=== PATIENT | female | born 1945 | race Caucasian/White ===

== ENCOUNTER 2019-12-22 10:45 | Inpatient (IN) | payer OTHER ==
[~2019-12-22] VITALS: Ht 157.5 cm; Wt 68.9 kg
[~2019-12-22 10:45] MED LIST: NORPTMEDS CO
[2019-12-22 11:35] LABS: Basophils # (auto) 0.1 10 ^3/uL (0-0.2); Basophils % (auto) 0.7 % (0.0-2.0); Eosinophils # (auto) 0.1 10 ^3/uL (0-0.8); Eosinophils % (auto) 0.3 % (0.0-7.0); Hematocrit 34.5 % (36.0-46.0); Hemoglobin 11.5 g/dL (12.2-16.2); Lymphocytes # (auto) 1.7 10 ^3/uL (0.4-5.4); Lymphocytes % (auto) 10.5 % (10.0-50.0); Mean Corpuscular Hemoglobin 30.3 pg (28.0-32.0); Mean Corpuscular Hgb Conc. 33.2 g/dL (32.0-36.0); Mean Corpuscular Volume 91.3 fL (80.0-100.0); Monocytes # (auto) 2.1 10 ^3/uL (0-1.3); Monocytes % (auto) 13.3 % (0.0-12.0); Neutrophils % (auto) 75.2 % (37.0-80.0); Platelet Count (auto) 318 10^3/uL (140-450); Red Blood Cells 3.78 10^6/uL (4.0-5.20)
[2019-12-22 11:49] LABS: Albumin 3.1 g/dL (3.4-5.0); Calcium 8.6 mg/dL (8.5-10.1); Potassium 3.9 mmol/L (3.5-5.1)
[2019-12-22 11:53] LABS: BUN/Creatinine Ratio 18.5; Total Protein 7.3 g/dL (6.4-8.2)
[2019-12-22] MEDS ORDERED: ONDANSETRON HCL 4 MG/2 ML VIAL IV ONE (13:15)
[2019-12-22] MEDS ORDERED: ENOXAPARIN SOD 80 MG/0.8ML SYRINGE SC ONE (13:15)
[2019-12-22] MEDS ORDERED: MORPHINE SULFATE 4 MG/ML SYR/VIAL IV ONE (13:15)
[2019-12-22] MEDS ORDERED: CLINDAMYCIN 600MG IV 50 ML IV ONE (13:45)
[2019-12-22] MEDS ORDERED: cefTRIAXone 1GM/50ML D5W 50 ML IV ONE (13:45)
[2019-12-22] MEDS ORDERED: HYDROcodone-ACET 10/325MG TAB PO ONE (15:15)
[2019-12-22] MEDS ORDERED: HYDROcodone-ACET 10/325MG TAB ONE (15:17)
[2019-12-22 16:04] LABS: INR 1.04 (0.9-1.15); Partial Thromboplastin Time 31.7 sec (23.0-31.2)
[2019-12-22] MEDS ORDERED: ACETAMINOPHEN 325 MG TAB PO PRN (16:30)
[2019-12-22] MEDS ORDERED: MORPHINE SULF INJ 2 MG/ML SYRINGE 1ML IV PRN (16:30)
[2019-12-22] MEDS ORDERED: NITROGLYCERIN 0.4 MG SL TAB SL PRN (16:30)
[2019-12-22] MEDS: SODIUM CHLORIDE 0.9% 1,000 ML IV SCH (16:31)
[2019-12-22] MEDS ORDERED: ETOD200C27 PO (18:54)
[2019-12-22] MEDS ORDERED: ATEN-60 PO (18:54)
--- NOTE | 2019-12-22 20:46 | NUR ---
Tele Admit from ER Patient arrived on unit via stretcher. Tele box #55 SR in the 60s. Patient exhibited no s/s of distress or pain. Respirations are even and unlabored. Ice packs given for leg. Patient oriented to unit, room, and call light. Safety measures maintained by keeping the bed locked in lowest position, 2 side rails up, personal items and call light within reach. POC discussed with patient. Patient verbalized understanding. Will continue to monitor.
[2019-12-22 22:00] VITALS: BP 110/61
[2019-12-22] MEDS: ENOXAPARIN SOD 80 MG/0.8ML SYRINGE SC SCH (22:21)
[2019-12-23 00:26] VITALS: BP 110/61
[2019-12-23] MEDS: SODIUM CHLORIDE 0.9% 1,000 ML IV SCH ×2 (03:47→09:30)
[2019-12-23 05:00] VITALS: BP 119/57
[2019-12-23] MEDS: HYDROcodone-ACET 5/325MG TAB PO PRN ×2 (05:30→12:06)
[2019-12-23 06:00] LABS: Basophils # (auto) 0 10 ^3/uL (0-0.2); Basophils % (auto) 0.3 % (0.0-2.0); Eosinophils # (auto) 0.2 10 ^3/uL (0-0.8); Eosinophils % (auto) 1.9 % (0.0-7.0); Hematocrit 30.5 % (36.0-46.0); Hemoglobin 10.3 g/dL (12.2-16.2); Lymphocytes % (auto) 18.2 % (10.0-50.0); Mean Corpuscular Hgb Conc. 33.8 g/dL (32.0-36.0); Mean Corpuscular Volume 91.6 fL (80.0-100.0); Monocytes # (auto) 1.9 10 ^3/uL (0-1.3); Monocytes % (auto) 17.2 % (0.0-12.0); Neutrophils # (auto) 6.8 10 ^3/uL (1.6-8.6); Neutrophils % (auto) 62.4 % (37.0-80.0); Platelet Count (auto) 282 10^3/uL (140-450); Red Blood Cells 3.34 10^6/uL (4.0-5.20); Red Cell Distribution Width 12.7 % (11.8-14.3); White Blood Cell 10.9 10^3/uL (4.4-10.8)
[2019-12-23 06:20] LABS: Calcium 8.1 mg/dL (8.5-10.1); Potassium 4.1 mmol/L (3.5-5.1)
[2019-12-23 06:23] LABS: BUN/Creatinine Ratio 23.5
--- NOTE | 2019-12-23 07:30 | NUR ---
Opening Shift Note Assumed care of patient, awake and alert. No S/S of distress/SOB or pain. STATED SHE FEELS A LOT BETTER TODAY. Instructed on POC and to call for assist PRN, will continue to monitor for changes Q1hr and PRN.
[2019-12-23 09:00] VITALS: BP 122/55
[2019-12-23] MEDS: ENOXAPARIN SOD 80 MG/0.8ML SYRINGE SC SCH (09:31)
[2019-12-23 13:14] VITALS: BP 109/52
[2019-12-23] MEDS ORDERED: POLYETHYLENE GLYCOL 17 GM PWDR PO ONE (15:00)
[2019-12-23] MEDS ORDERED: APIX5TAB PO (15:42)
[2019-12-23] MEDS ORDERED: HYDR-4833 PO (15:42)
[2019-12-23] MEDS ORDERED: ACE325T PO (15:42)
[2019-12-23 17:00] VITALS: BP 153/73
--- NOTE | 2019-12-23 17:29 | NUR ---
SS consult for home health safety evaluation and physical therapy. Faxed clinical information to [facility] Client Care Representative, Zenaida, and to [facility] ( [phone]). Information received and services to start 24-48 hours after discharge. no further social service interventions at this time.
--- NOTE | 2019-12-23 18:30 | NUR ---
PER DR Gilma PATTERSON, HOME HEALTH HAD BEEN SET UP.
[2019-12-23] MEDS ORDERED: APIXABAN 5 MG TAB PO SCH (22:00)
== END 2019-12-23 18:35 | disposition home health service (06) | DRG 299 ==
LOC: ER 10:45 → TELE 10:46 → TELE-WESTW 21:03
PROVIDERS: ADMIT Internal Medicine; ATTEND Internal Medicine
DX: I82.412 Acute embolism and thrombosis of left femoral vein (principal); N17.0 Acute kidney failure with tubular necrosis; E44.1 Mild protein-calorie malnutrition; D72.829 Elevated white blood cell count, unspecified; F17.210 Nicotine dependence, cigarettes, uncomplicated; M19.90 Unspecified osteoarthritis, unspecified site
CPT/HCPCS: 36415; 71045; 72192; 80048; 80053; 85025; 85610; 85730; 87040; 87086; 87088; 93970; 96365; 96366; 96368; 96372; 96375; G0378; J0696; J2405; J3490

== ENCOUNTER 2022-03-17 12:01 | Emergency (ER) | payer OTHER ==
[~2022-03-17] VITALS: Ht 157.5 cm; Wt 66.8 kg
[~2022-03-17 12:01] MED LIST changes: +ACET325T10 PO; +APIX5TAB PO; +ATEN-60 PO; +HYDR-4833 PO; -NORPTMEDS CO
[2022-03-17 13:25] VITALS: BP 191/83
[2022-03-17] MEDS ORDERED: traMADol HCL 50 MG TAB PO ONE (14:30)
== END 2022-03-17 16:35 | disposition home or self-care (01) ==
LOC: ER 12:08
DX: I82.402 Acute embolism and thrombosis of unspecified deep veins of left lower extremity (principal); I10 Essential (primary) hypertension; M19.90 Unspecified osteoarthritis, unspecified site; F17.210 Nicotine dependence, cigarettes, uncomplicated; Z90.89 Acquired absence of other organs
CPT/HCPCS: 73562; 93971

== ENCOUNTER 2024-02-13 10:54 | Emergency (ER) | payer OTHER ==
[~2024-02-13] VITALS: Ht 157.5 cm; Wt 65.0 kg
[~2024-02-13 10:54] MED LIST changes: +ACET-1882 PO; -ACET325T10 PO
[2024-02-13 11:12] LABS: Basophils # (auto) 0 10 ^3/uL (0-0.2); Basophils % (auto) 0.3 % (0.0-2.0); Eosinophils # (auto) 0.1 10 ^3/uL (0-0.8); Eosinophils % (auto) 0.5 % (0.0-7.0); Hemoglobin 15.9 g/dL (12.2-16.2); Lymphocytes # (auto) 1.9 10 ^3/uL (0.4-5.4); Lymphocytes % (auto) 16.5 % (10.0-50.0); Mean Corpuscular Hemoglobin 31.9 pg (28.0-32.0); Mean Corpuscular Hgb Conc. 34.5 g/dL (32.0-36.0); Mean Corpuscular Volume 92.5 fL (80.0-100.0); Neutrophils # (auto) 8.3 10 ^3/uL (1.6-8.6); Neutrophils % (auto) 73.7 % (37.0-80.0); Platelet Count (auto) 292 10^3/uL (140-450); Red Blood Cells 4.97 10^6/uL (4.0-5.20); Red Cell Distribution Width 13.5 % (11.8-14.3); White Blood Cell 11.3 10^3/uL (4.4-10.8)
[2024-02-13 11:29] LABS: Alanine Aminotransferase 14 U/L (7-40); Albumin 4.4 g/dL (3.2-4.8); Alkaline Phosphatase 78 U/L (46-116); Anion Gap 8 (5-15); Aspartate Aminotransferase 15 U/L (13-40); BUN/Creatinine Ratio 19.1 (10.0-20.0); Bilirubin, Total 0.7 mg/dL (0.2-1.0); Blood Urea Nitrogen 22 mg/dL (9-23); Calcium 9.8 mg/dL (8.7-10.4); Carbon Dioxide 25 mmol/L (20-31); Chloride 108 mmol/L (98-107); Glucose 91 mg/dL (74-106); Potassium 4.2 mmol/L (3.5-5.1); Sodium 141 mmol/L (136-145); Total Protein 6.6 g/dL (5.7-8.2)
[2024-02-13] MEDS: SODIUM CHLORIDE 0.9% 1,000 ML IV ONE (12:35)
[2024-02-13] MEDS: ONDANSETRON HCL 4 MG/2 ML VIAL IV ONE (12:42)
[2024-02-13] MEDS: PANTOPRAZOLE 40 MG/10 ML VIAL INJ IV ONE (12:42)
[2024-02-13] MEDS: MORPHINE SULFATE 4 MG/ML SYR/VIAL IV ONE (13:39)
[2024-02-13] MEDS ORDERED: SUCR1TAB PO (15:47)
[2024-02-13] MEDS ORDERED: PANT40T PO (15:47)
[2024-02-13] MEDS ORDERED: ZOFR4T PO (15:48)
[2024-02-13] MEDS ORDERED: MAGN100T6 OR (15:48)
[2024-02-13] MEDS ORDERED: ACET-1304 PO (15:48)
[2024-02-13 16:02] VITALS: BP 165/63; PULSE 64; RESP 16; TEMP 98.2; O2SAT 96
[2024-02-13] MEDS ORDERED: APIXABAN 5 MG TAB PO SCH (22:00)
[2024-02-14] MEDS ORDERED: ATENOLOL 25 MG TAB PO SCH (10:00)
== END 2024-02-13 16:08 | disposition home or self-care (01) ==
LOC: ER 10:54
DX: R07.89 Other chest pain (principal); F17.210 Nicotine dependence, cigarettes, uncomplicated; I10 Essential (primary) hypertension; M19.90 Unspecified osteoarthritis, unspecified site; Z79.01 Long term (current) use of anticoagulants; Z79.899 Other long term (current) drug therapy; Z86.718 Personal history of other venous thrombosis and embolism; Z87.11 Personal history of peptic ulcer disease; Z90.89 Acquired absence of other organs
CPT/HCPCS: 36415; 71045; 74176; 80053; 83690; 83880; 84484; 85025; 93005; 96361; 96374; 96375; 99285; J2270; J2405; J2470; J7030